=== PATIENT | male | born 1970 | race Caucasian/White ===

== ENCOUNTER 2023-07-25 18:00 | Emergency (ER) | payer SELFPAY ==
[~2023-07-25] VITALS: Ht 182.9 cm; Wt 100.0 kg
[2023-07-25 18:07] VITALS: BP 131/92; PULSE 87; RESP 16; TEMP 98; O2SAT 96
[2023-07-25] MEDS ORDERED: CEPH-585 PO (18:55)
[2023-07-25] MEDS ORDERED: SULF1TAB49 PO (18:55)
== END 2023-07-25 18:58 | disposition home or self-care (01) ==
LOC: ER 18:01
DX: S40.861A Insect bite (nonvenomous) of right upper arm, initial encounter (principal); W57.XXXA Bitten or stung by nonvenomous insect and other nonvenomous arthropods, initial encounter; Y93.89 Activity, other specified; Y92.89 Other specified places as the place of occurrence of the external cause; Y99.8 Other external cause status
CPT/HCPCS: 99283